=== PATIENT | female | born 1970 | race Caucasian/White ===

== ENCOUNTER → 2020-09-06 | Outpatient (CLI) | payer BC, OTHER ==
[~2020-09-06] MED LIST: BUPR150T49; HYDR-2997 PO; PHENERMINE; SITA50TA
== END ==
LOC: WOUNDCARE 12:54
PROVIDERS: ATTEND Surgery
DX: I96 Gangrene, not elsewhere classified (principal); L97.812 Non-pressure chronic ulcer of other part of right lower leg with fat layer exposed; L03.115 Cellulitis of right lower limb; S81.011S Laceration without foreign body, right knee, sequela
CPT/HCPCS: 11042; A6260; G0463

== ENCOUNTER → 2020-09-13 | Outpatient (CLI) | payer OTHER | LOC: WOUNDCARE 14:55 | PROVIDERS: ATTEND Surgery | DX: L95.8 Other vasculitis limited to the skin (principal); L97.812 Non-pressure chronic ulcer of other part of right lower leg with fat layer exposed; I96 Gangrene, not elsewhere classified; S81.011S Laceration without foreign body, right knee, sequela | CPT/HCPCS: A4649; G0463; 99212 ==

== ENCOUNTER → 2020-09-20 | Outpatient (CLI) | payer OTHER | LOC: WOUNDCARE 14:52 | PROVIDERS: ATTEND Surgery | DX: L95.8 Other vasculitis limited to the skin (principal); L97.812 Non-pressure chronic ulcer of other part of right lower leg with fat layer exposed; I96 Gangrene, not elsewhere classified; S81.011S Laceration without foreign body, right knee, sequela; X58.XXXS Exposure to other specified factors, sequela | CPT/HCPCS: 99212 ==

== ENCOUNTER → 2020-10-04 | Outpatient (CLI) | payer OTHER | LOC: WOUNDCARE 14:47 | PROVIDERS: ATTEND Surgery | DX: I96 Gangrene, not elsewhere classified (principal); L03.115 Cellulitis of right lower limb; L95.8 Other vasculitis limited to the skin; L97.812 Non-pressure chronic ulcer of other part of right lower leg with fat layer exposed; S81.011S Laceration without foreign body, right knee, sequela | CPT/HCPCS: 11042; 87070; 87077; 87205; G0463 ==

== ENCOUNTER → 2020-10-11 | Outpatient (CLI) | payer OTHER | LOC: WOUNDCARE 14:59 | PROVIDERS: ATTEND Surgery | DX: L97.512 Non-pressure chronic ulcer of other part of right foot with fat layer exposed (principal); S81.011S Laceration without foreign body, right knee, sequela; I96 Gangrene, not elsewhere classified | CPT/HCPCS: 11042; G0463 ==

== ENCOUNTER → 2020-10-18 | Outpatient (CLI) | payer OTHER | LOC: WOUNDCARE 14:51 | PROVIDERS: ATTEND Surgery | DX: I96 Gangrene, not elsewhere classified (principal); S81.021A Laceration with foreign body, right knee, initial encounter; L03.115 Cellulitis of right lower limb; L97.512 Non-pressure chronic ulcer of other part of right foot with fat layer exposed | CPT/HCPCS: 11042; G0463 ==

== ENCOUNTER → 2020-10-26 | Outpatient (CLI) | payer OTHER | LOC: WOUNDCARE 14:48 | PROVIDERS: ATTEND Surgery | DX: L97.812 Non-pressure chronic ulcer of other part of right lower leg with fat layer exposed (principal); S81.021A Laceration with foreign body, right knee, initial encounter | CPT/HCPCS: 11042; G0463 ==

== ENCOUNTER → 2020-11-01 | Outpatient (CLI) | payer OTHER | LOC: WOUNDCARE 14:53 | PROVIDERS: ATTEND Surgery | DX: L97.812 Non-pressure chronic ulcer of other part of right lower leg with fat layer exposed (principal); S81.021A Laceration with foreign body, right knee, initial encounter | CPT/HCPCS: 11042; G0463 ==

== ENCOUNTER → 2020-11-08 | Outpatient (CLI) | payer OTHER | LOC: WOUNDCARE 14:56 | PROVIDERS: ATTEND Surgery | DX: S81.021A Laceration with foreign body, right knee, initial encounter (principal); I96 Gangrene, not elsewhere classified; L97.812 Non-pressure chronic ulcer of other part of right lower leg with fat layer exposed | CPT/HCPCS: 11042; G0463 ==

== ENCOUNTER → 2020-11-25 | Outpatient (CLI) | payer OTHER | LOC: WOUNDCARE 12:54 | PROVIDERS: ATTEND Orthopaedic Surgery Hand Surgery | DX: S81.021A Laceration with foreign body, right knee, initial encounter (principal); I96 Gangrene, not elsewhere classified; L97.812 Non-pressure chronic ulcer of other part of right lower leg with fat layer exposed; R60.0 Localized edema | CPT/HCPCS: 11042; G0463 ==

== ENCOUNTER → 2020-11-29 | Outpatient (CLI) | payer OTHER | LOC: WOUNDCARE 14:52 | PROVIDERS: ATTEND Surgery | DX: L97.512 Non-pressure chronic ulcer of other part of right foot with fat layer exposed (principal); S81.021A Laceration with foreign body, right knee, initial encounter | CPT/HCPCS: 99212 ==

== ENCOUNTER → 2020-12-13 | Outpatient (CLI) | payer OTHER | LOC: WOUNDCARE 14:48 | PROVIDERS: ATTEND Surgery | DX: L97.812 Non-pressure chronic ulcer of other part of right lower leg with fat layer exposed (principal); S81.021A Laceration with foreign body, right knee, initial encounter; R60.0 Localized edema | CPT/HCPCS: 99212 ==

== ENCOUNTER → 2021-04-26 | Outpatient (CLI) | payer OTHER ==
--- NOTE | 2021-04-26 11:37 | Diagnostic Imaging Report ---
INDICATION: Fall. 3 views of the right knee were obtained. FINDINGS: The alignment is normal. There is no fracture or dislocation. Soft tissues are unremarkable. IMPRESSION: No acute fracture or dislocation Dictated on workstation # [id number]
== END ==
LOC: RAD 11:03
PROVIDERS: ATTEND Nurse Practitioner Family
DX: M25.561 Pain in right knee (principal)
CPT/HCPCS: 73562

== ENCOUNTER → 2021-08-24 | Outpatient (CLI) | payer OTHER ==
--- NOTE | 2021-08-24 11:58 | Diagnostic Imaging Report ---
EXAMINATION: Magnetic resonance imaging of the right knee without intravenous contrast DATE: August 24, 2021. COMPARISON: Right knee radiograph April 26, 2021. INDICATION: 51-year-old female, right knee pain. Injury. TECHNIQUE: Multiplanar, multisequence non contrast enhanced MR imaging was accomplished. FINDINGS: MENISCI: The medial meniscus is intact. The lateral meniscus is intact. LIGAMENTS AND TENDONS: The anterior and posterior cruciate ligaments are intact. The medial collateral ligament is intact. The iliotibial band, mid third lateral capsular ligament, fibular collateral ligament, biceps femoris tendon and conjoined tendon are intact. The quadriceps tendon and patella ligament are intact. JOINT: The articular cartilage surfaces are intact. There is no knee joint effusion, prominent synovitis, or intra-articular body. BONE: There is unremarkable bone marrow signal. Specifically, negative for fracture, osteomyelitis, osteonecrosis, or marrow replacing process. BURSAE AND SOFT TISSUES: No Bakers cyst. IMPRESSION: 1. Intact menisci and cruciate ligaments. Additional ligament and tendons are intact. 2. No acute fracture, bone contusion, or other notable bone marrow signal abnormality. 3. Intact articular cartilage. No knee joint effusion. Dictated by: Dictated on workstation # [id number]
--- NOTE | 2021-08-24 12:50 | Diagnostic Imaging Report ---
INDICATION: Routine screening. COMPARISON is made with prior mammogram from 10/14/2008. 2-D and 3-D bilateral screening mammography was performed with CAD. Both breasts are heterogeneously dense, limiting the sensitivity of mammography. Parenchymal pattern is stable. No mass or malignant-appearing microcalcifications are seen. Axillae are unremarkable. IMPRESSION: BI-RADS Category 1 No mammographic features suspicious for malignancy are identified. ACR BI-RADS Category 1: Negative. Result letter will be mailed to the patient. Note: At least 10% of breast cancer is not imaged by mammography. Dictated by: Dictated on workstation # [id number]
== END ==
LOC: RAD 07:45
PROVIDERS: ATTEND Nurse Practitioner Family
DX: Z12.31 Encounter for screening mammogram for malignant neoplasm of breast (principal); S89.91XA Unspecified injury of right lower leg, initial encounter; X58.XXXA Exposure to other specified factors, initial encounter
CPT/HCPCS: 73721; 77063; 77067